=== PATIENT | female | born 1965 | race Caucasian/White ===

== ENCOUNTER 2018-08-30 15:08 | Inpatient (IN) | payer OTHER ==
[2018-08-30 17:14] VITALS: BMI 20.5
--- NOTE | 2018-08-30 17:56 | HP ---
CIWA Score - Admission Criteria OASAS Guidelines: Admission for Medically Managed Detox: Requires at least one of the followin. CIWA greater than 12 2. Seizures within the past 24 hours 3. Delirium tremens within the past 24 hours 4. Hallucinations within the past 24 hours 5. Acute intervention needed for co occurring medical disorder 6. Acute intervention needed for co occurring psychiatric disorder 7. Severe withdrawal that cannot be handled at a lower level of care (continued vomiting, continued diarrhea, abnormal vital signs) requiring intravenous medication and/or fluids 8. Admission ROS S - HPI Chief Complaint: SEEKING REHAB SERVICES Allergies/Adverse Reactions: Allergies Allergy/AdvReac Type Severity Reaction Status Date / Time No Known Allergies Allergy Verified 08/30/18 17:06 History of Present Illness: 53 Y.O. WOMAN WITH AN EXTENSIVE HISTORY OF CRACK-COCAINE, MARIJUANA AND K2 DEPENDENCE IS HERE SEEKING REHAB SERVICES. SHE REPORTS SHE LAST COMPLETED REHAB AT [facility] 6 MONTHS AGO. SHE REPORTS HER LONGEST PERIOD OF ILLICIT DRUG ABSTINENCES HAS BEEN 3 YEARS. Exam Limitations: No Limitations - Ebola screening Have you traveled outside of the country in the last 21 days: No Have you had contact with anyone from an Ebola affected area: No Do you have a fever: No - Review of Systems Constitutional: Chills EENT: reports: Nose Congestion Respiratory: reports: Cough Cardiac: reports: No Symptoms Reported GI: reports: No Symptoms Reported : reports: Dysuria Musculoskeletal: reports: No Symptoms Reported Integumentary: reports: No Symptoms Reported Neuro: reports: No Symptoms reported Endocrine: reports: No Symptoms Reported Hematology: reports: No Symptoms Reported Psychiatric: reports: Judgement Intact, Mood/Affect Appropiate, Orientated x3 Other Systems: Reviewed and Negative Patient History - Patient Medical History Hx Anemia: No Hx Asthma: No Hx Chronic Obstructive Pulmonary Disease (COPD): No Hx Cancer: No Hx Cardiac Disorders: No Hx Congestive Heart Failure: No Hx Hypertension: No Hx Hypercholesterolemia: No Hx Pacemaker: No HX Cerebrovascular Accident: No Hx Seizures: No Hx Dementia: No Hx Diabetes: No Hx Gastrointestinal Disorders: No Hx Liver Disease: No Hx Genitourinary Disorders: No Hx Sexually Transmitted Disorders: No Hx Renal Disease (ESRD): No Hx Thyroid Disease: Yes (HYPOTHYROID ) Hx Human Immunodeficiency Virus (HIV): No Hx Hepatitis C: No Hx Depression: No Hx Suicide Attempt: No Hx Bipolar Disorder: Yes Hx Schizophrenia: No Other Medical History: INSOMNIA - Patient Surgical History Past Surgical History: Yes Hx Orthopedic Surgery: Yes (HEAL SPUR AT 18 Y.O. ) Anesthesia Reaction: No - PPD History Previous Implant?: Yes Documented Results: Negative w/o proof PPD to be Administered?: Yes - Reproductive History Patient is a Female of Child Bearing Age (11 -55 yrs old): Yes Last Menstrual Period: 08/30/14 Patient : No - Smoking Cessation Smoking history: Current every day smoker Have you smoked in the past 12 months: Yes Aproximately how many cigarettes per day: 10 Initiated information on smoking cessation: Yes 'Breaking Loose' booklet given: 08/30/18 - Substance & Tx. History Hx Alcohol Use: No Hx Substance Use: Yes Substance Use Type: Cocaine, Marijuana Hx Substance Use Treatment: Yes (REHAB: 6 MONTHS AT [facility] ) - Substances abused Crack Substance route: Smoking Frequency: 3-6 times per week Amount used: $50 Age of first use: 21 Date of last use: 08/28/18 Marijuana/Hashish Substance route: Smoking Frequency: 3-6 times per week Amount used: $30 Age of first use: 21 Date of last use: 08/30/18 Family Disease History - Family Disease History Family Disease History: Other: Mother (Heroin dependence- ) Admission Physical Exam [facility] - Vital Signs Vital Signs: Vital Signs - 24 hr 08/30/18 16:55 Temperature 97.3 F L Pulse Rate 71 Respiratory 16 Rate Blood Pressure 122/82 - Physical General Appearance: Yes: No Apparent Distress, Nourished, Appropriately Dressed HEENTM: Yes: Other (Hard of hearing of) Respiratory: Yes: Chest Non-Tender, Lungs Clear, Normal Breath Sounds, No Respiratory Distress, No Accessory Muscle Use Neck: Yes: Within Normal Limits, No masses,lesions,Nodules Breast: Yes: Within Normal Limits Cardiology: Yes: Regular Rhythm, Regular Rate Abdominal: Yes: Normal Bowel Sounds, Non Tender Genitourinary: Yes: Dysuria Back: Yes: Within Normal Limits, Normal Inspection Musculoskeletal: Yes: full range of Motion, Gait Steady, Pelvis Stable Extremities: Yes: Normal Inspection, Normal Range of Motion, Non-Tender Neurological: Yes: Alert, Normal Mood/Affect, Normal Response Integumentary: Yes: Normal Color, Dry, Warm Lymphatic: Yes: Within Normal Limits - Diagnostic (1) Cocaine dependence, uncomplicated Current Visit: Yes Status: Chronic (2) Cannabis dependence, uncomplicated Current Visit: Yes Status: Chronic (3) Hypothyroid Current Visit: Yes Status: Chronic (4) Nicotine dependence Current Visit: Yes Status: Chronic Cleared for Admission S - Detox or Rehab [facility] Level of Care: Observation Bed Detox Regimen/Protocol: Not Applicable Claeared for Rehab Admission: Yes Breathalyzer - Breathalyzer Breathalyzer: 0 Inpatient Rehab Admission - Rehab Decision to Admit Inpatient rehab admission?: Yes - Initial Determination Are CD services needed?: Yes Free of communicable disease: Yes Not in need of hospitalization: Yes - Rehab Admission Criteria Previous failed treatment: Yes Poor recovery environment: Yes Comorbidities: Yes Lacks judgement: Yes Patient is meeting Inpatient Rehab admission criteria:: Yes
[2018-08-30] MEDS ORDERED: P-EPHED 60MG/TRIPROLIDI 2.5MG TABLET PO PRN (18:06)
[2018-08-30] MEDS ORDERED: MAG HYDROX/AL HYDROX/SIMETH 30 ML UNIT-DOSE CUP PO PRN (18:06)
[2018-08-30] MEDS ORDERED: LOPERAMIDE HCL 2 MG CAPSULE PO PRN (18:06)
[2018-08-30] MEDS ORDERED: IBUPROFEN 400 MG TABLET (FP) PO PRN (18:06)
[2018-08-30] MEDS ORDERED: MAGNESIUM HYDROX 2400MG/30ML ORAL SUSPENSION 30 ML CUP PO PRN (18:06)
[2018-08-30] MEDS ORDERED: ACETAMINOPHEN 325 MG TABLET (FP) PO PRN (18:06)
[2018-08-30] MEDS ORDERED: MENTHOL/PHENOL 1 EACH UD MM PRN (18:06)
[2018-08-30] MEDS ORDERED: MAGNESIUM CITRATE 300 ML BOTTLE PO PRN (18:06)
[2018-08-30] MEDS ORDERED: NICOTINE POLACRILEX 2 MG GUM BC PRN (18:06)
[2018-08-30] MEDS ORDERED: TUBERCULIN PPD 5 TU/0.1ML VIAL ID ONE (21:11)
[2018-08-30] MEDS ORDERED: traZODone HCL 50 MG TABLET (FP) PO ONE (22:00)
[2018-08-30] MEDS: THIAMINE HCL 100 MG TABLET (FP) PO SCH (23:20)
[2018-08-31 00:59] LABS: EPI CELLS >36 /HPF (0-5/HPF); HYALINE CASTS 58 /lpf (0-8); PH,URINE 5.5 (5.0-8.0); URINE APPEARANCE TURBID; URINE BACTERIA 1341.5 /hpf (NEGATIVE); URINE BILIRUBIN 1+ (NEGATIVE); URINE COLOR DK YELLOW; URINE GLUCOSE (UA) NEGATIVE (NEGATIVE); URINE KETONE TRACE (NEGATIVE); URINE LEUK ESTERASE 3+ (NEGATIVE); URINE NITRITE NEGATIVE (NEGATIVE); URINE PROTEIN TRACE (NEGATIVE); URINE UROBILINOGEN 0.2 mg/dL (0.2-1.0); URINE WBC 837 /hpf (0-5)
[2018-08-31 01:30] LABS: URINE RBC 15-20 /hpf (0-4)
[2018-08-31 01:31] LABS: URINE CRYSTALS MODERATE /hpf
[2018-08-31 01:32] LABS: YEAST NEGATIVE (NEGATIVE)
[2018-08-31] MEDS ORDERED: LORATADINE 10 MG PO SCH (10:00)
[2018-08-31] MEDS: PRENATAL VITAMINS W/ FOLIC ACID TABLET (FP) PO SCH (10:06)
[2018-08-31] MEDS: LEVOTHYROXINE NA 25 MCG TABLET (FP) PO SCH (10:06)
[2018-08-31] MEDS: NICOTINE 14 MG/24 HOURS TOPICAL PATCH TD SCH (10:06)
[2018-08-31] MEDS: guaiFENesin 200 MG/10 ML 10 ML UNIT-DOSE CUPS PO PRN (10:18)
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
--- NOTE | 2018-08-31 12:14 | EKG ---
Test Reason : Blood Pressure : / mmHG Vent. Rate : 061 BPM Atrial Rate : 061 BPM P-R Int : 120 ms QRS Dur : 076 ms QT Int : 452 ms P-R-T Axes : 062 066 068 degrees QTc Int : 455 ms NORMAL SINUS RHYTHM NORMAL ECG NO PREVIOUS ECGS AVAILABLE Confirmed by MD Brandon, Jaime ([id number]) on 08/31/2018 12:14:20 PM Referred By: Confirmed By:Jaime Taylor MD
[2018-08-31 12:30] LABS: HEMATOCRIT 38.1 % (32.4-45.2); HEMOGLOBIN 11.9 GM/dL (10.7-15.3); MCH 25.8 pg (25.7-33.7); MCHC 31.2 g/dl (32.0-36.0); MEAN CELL VOLUME 82.9 fl (80-96); MEAN PLT VOLUME 8.8 fl (7.5-11.1); PLATELET COUNT 310 K/MM3 (134-434); RDW 18.2 % (11.6-15.6); WHITE BLOOD COUNT 8.9 K/mm3 (4.0-10.0)
[2018-08-31 12:40] LABS: ALBUMIN 3.4 g/dl (3.4-5.0); BILIRUBIN,TOTAL 0.4 mg/dL (0.2-1); CALCIUM 8.9 mg/dL (8.5-10.1); CREATININE 0.8 mg/dL (0.55-1.3); POTASSIUM 4.9 mmol/L (3.5-5.1); TOT PROT 6.4 g/dl (6.4-8.2)
[2018-08-31] MEDS: ARIPiprazole 10 MG TABLET PO SCH (12:40)
[2018-08-31] MEDS: traZODone HCL 100 MG TABLET (FP) PO SCH (21:33)
[2018-08-31] MEDS: THIAMINE HCL 100 MG TABLET (FP) PO SCH (21:34)
[2018-08-31] MEDS ORDERED: PT OWN MED DRAWER 7, Y5N ONE (23:43)
[2018-09-01] MEDS: NICOTINE 14 MG/24 HOURS TOPICAL PATCH TD SCH (10:24)
[2018-09-01] MEDS: ARIPiprazole 10 MG TABLET PO SCH (10:24)
[2018-09-01] MEDS: LORATADINE 10 MG TABLET PO SCH (10:24)
[2018-09-01] MEDS: PRENATAL VITAMINS W/ FOLIC ACID TABLET (FP) PO SCH (10:24)
[2018-09-01] MEDS: LEVOTHYROXINE NA 25 MCG TABLET (FP) PO SCH (10:26)
[2018-09-01] MEDS: guaiFENesin 200 MG/10 ML 10 ML UNIT-DOSE CUPS PO PRN (20:16)
[2018-09-01] MEDS: THIAMINE HCL 100 MG TABLET (FP) PO SCH (21:57)
[2018-09-01] MEDS: traZODone HCL 100 MG TABLET (FP) PO SCH (21:57)
[2018-09-01] MEDS: valACYclovir HCL 500 MG TABLET (FP) PO SCH (21:57)
[2018-09-02] MEDS: LEVOTHYROXINE NA 25 MCG TABLET (FP) PO SCH (06:31)
[2018-09-02] MEDS: ARIPiprazole 10 MG TABLET PO SCH (10:06)
[2018-09-02] MEDS: LORATADINE 10 MG TABLET PO SCH (10:07)
[2018-09-02] MEDS: NICOTINE 14 MG/24 HOURS TOPICAL PATCH TD SCH (10:07)
[2018-09-02] MEDS: valACYclovir HCL 500 MG TABLET (FP) PO SCH ×2 (10:07→21:25)
[2018-09-02] MEDS: PRENATAL VITAMINS W/ FOLIC ACID TABLET (FP) PO SCH (10:07)
--- NOTE | 2018-09-02 15:48 | PN ---
[facility] Progress Note Note: Client has runny nose and cough. She states she has had a runny nose for many years and a smoker's cough. Her roommate is concerned that the patient may have an URI. Exam: no fever, exudate, malaise,throat redness, headache. Lungs clear. Assessment: Negative for URI. PLAN: Continue claritin and using nicoderm patch.
[2018-09-02] MEDS: traZODone HCL 100 MG TABLET (FP) PO SCH (21:25)
[2018-09-02] MEDS: THIAMINE HCL 100 MG TABLET (FP) PO SCH (21:25)
[2018-09-03] MEDS: LEVOTHYROXINE NA 25 MCG TABLET (FP) PO SCH (06:27)
[2018-09-03] MEDS: NICOTINE 14 MG/24 HOURS TOPICAL PATCH TD SCH (10:03)
[2018-09-03] MEDS: PRENATAL VITAMINS W/ FOLIC ACID TABLET (FP) PO SCH (10:03)
[2018-09-03] MEDS: LORATADINE 10 MG TABLET PO SCH (10:04)
[2018-09-03] MEDS: ARIPiprazole 10 MG TABLET PO SCH (10:04)
[2018-09-03] MEDS: valACYclovir HCL 500 MG TABLET (FP) PO SCH ×2 (10:04→21:29)
[2018-09-03] MEDS: traZODone HCL 100 MG TABLET (FP) PO SCH (21:29)
[2018-09-03] MEDS: guaiFENesin 200 MG/10 ML 10 ML UNIT-DOSE CUPS PO PRN (21:29)
[2018-09-03] MEDS: THIAMINE HCL 100 MG TABLET (FP) PO SCH (21:29)
[2018-09-04] MEDS: hydrOXYzine PAMOATE 50 MG CAPSULE (FP) PO PRN ×2 (00:58→21:27)
[2018-09-04] MEDS: LEVOTHYROXINE NA 25 MCG TABLET (FP) PO SCH (06:55)
[2018-09-04] MEDS: NICOTINE 14 MG/24 HOURS TOPICAL PATCH TD SCH (09:50)
[2018-09-04] MEDS: LORATADINE 10 MG TABLET PO SCH (09:51)
[2018-09-04] MEDS: ARIPiprazole 10 MG TABLET PO SCH (09:51)
[2018-09-04] MEDS: valACYclovir HCL 500 MG TABLET (FP) PO SCH ×2 (09:51→21:26)
[2018-09-04] MEDS: PRENATAL VITAMINS W/ FOLIC ACID TABLET (FP) PO SCH (09:51)
[2018-09-04] MEDS: THIAMINE HCL 100 MG TABLET (FP) PO SCH (21:26)
[2018-09-04] MEDS: traZODone HCL 100 MG TABLET (FP) PO SCH (21:26)
[2018-09-04] MEDS: MELATONIN 5 MG TABLETS PO PRN (21:27)
[2018-09-04] MEDS: guaiFENesin 200 MG/10 ML 10 ML UNIT-DOSE CUPS PO PRN (21:27)
[2018-09-05] MEDS: LEVOTHYROXINE NA 25 MCG TABLET (FP) PO SCH (06:37)
[2018-09-05] MEDS: valACYclovir HCL 500 MG TABLET (FP) PO SCH ×2 (10:04→21:21)
[2018-09-05] MEDS: LORATADINE 10 MG TABLET PO SCH (10:04)
[2018-09-05] MEDS: ARIPiprazole 10 MG TABLET PO SCH (10:04)
[2018-09-05] MEDS: NICOTINE 14 MG/24 HOURS TOPICAL PATCH TD SCH (10:04)
[2018-09-05] MEDS: PRENATAL VITAMINS W/ FOLIC ACID TABLET (FP) PO SCH (10:04)
--- NOTE | 2018-09-05 12:09 | PN ---
S Progress Note Note: Vital Signs Temperature 97.3 F L 09/05/18 07:06 Pulse Rate 62 09/05/18 07:06 Respiratory Rate 16 09/05/18 07:06 Blood Pressure 124/89 09/05/18 07:06 O2 Sat by Pulse Oximetry (%) c/o of pain with urination UC/ UA ordered increase fluids continue to monitor
[2018-09-05 17:28] LABS: PH,URINE 5.5 (5.0-8.0); URINE APPEARANCE CLEAR; URINE BILIRUBIN NEGATIVE (NEGATIVE); URINE COLOR YELLOW; URINE GLUCOSE (UA) NEGATIVE (NEGATIVE); URINE KETONE NEGATIVE (NEGATIVE); URINE LEUK ESTERASE NEGATIVE (NEGATIVE); URINE NITRITE NEGATIVE (NEGATIVE); URINE PROTEIN NEGATIVE (NEGATIVE); URINE UROBILINOGEN 0.2 mg/dL (0.2-1.0)
[2018-09-05] MEDS: THIAMINE HCL 100 MG TABLET (FP) PO SCH (21:21)
[2018-09-05] MEDS: traZODone HCL 100 MG TABLET (FP) PO SCH (21:21)
[2018-09-05] MEDS: hydrOXYzine PAMOATE 50 MG CAPSULE (FP) PO PRN (21:22)
[2018-09-05] MEDS: MELATONIN 5 MG TABLETS PO PRN (21:22)
[2018-09-05] MEDS: guaiFENesin 200 MG/10 ML 10 ML UNIT-DOSE CUPS PO PRN (21:22)
[2018-09-06] MEDS: LEVOTHYROXINE NA 25 MCG TABLET (FP) PO SCH (07:31)
[2018-09-06] MEDS: valACYclovir HCL 500 MG TABLET (FP) PO SCH ×2 (10:10→21:16)
[2018-09-06] MEDS: NICOTINE 14 MG/24 HOURS TOPICAL PATCH TD SCH (10:10)
[2018-09-06] MEDS: LORATADINE 10 MG TABLET PO SCH (10:10)
[2018-09-06] MEDS: ARIPiprazole 10 MG TABLET PO SCH (10:10)
[2018-09-06] MEDS: PRENATAL VITAMINS W/ FOLIC ACID TABLET (FP) PO SCH (10:10)
[2018-09-06] MEDS: NICOTINE 21 MG/24 HOURS TOPICAL PATCH TD SCH (12:50)
[2018-09-06] MEDS: THIAMINE HCL 100 MG TABLET (FP) PO SCH (21:16)
[2018-09-06] MEDS: MELATONIN 5 MG TABLETS PO PRN (21:16)
[2018-09-06] MEDS: guaiFENesin 200 MG/10 ML 10 ML UNIT-DOSE CUPS PO PRN (21:16)
[2018-09-06] MEDS: hydrOXYzine PAMOATE 50 MG CAPSULE (FP) PO PRN (21:16)
[2018-09-06] MEDS: traZODone HCL 100 MG TABLET (FP) PO SCH (21:16)
[2018-09-06] MEDS ORDERED: PT OWN MED DRAWER 7, Y5N ONE (21:44)
[2018-09-07] MEDS: LEVOTHYROXINE NA 25 MCG TABLET (FP) PO SCH (06:34)
[2018-09-07] MEDS: ARIPiprazole 10 MG TABLET PO SCH (09:58)
[2018-09-07] MEDS: LORATADINE 10 MG TABLET PO SCH (09:59)
[2018-09-07] MEDS: PRENATAL VITAMINS W/ FOLIC ACID TABLET (FP) PO SCH (09:59)
[2018-09-07] MEDS: valACYclovir HCL 500 MG TABLET (FP) PO SCH ×2 (09:59→21:27)
[2018-09-07] MEDS: NICOTINE 21 MG/24 HOURS TOPICAL PATCH TD SCH (09:59)
[2018-09-07] MEDS ORDERED: PT OWN MED DRAWER 7, Y5N ONE (12:13)
[2018-09-07] MEDS: traZODone HCL 100 MG TABLET (FP) PO SCH (21:27)
[2018-09-07] MEDS: hydrOXYzine PAMOATE 50 MG CAPSULE (FP) PO PRN (21:27)
[2018-09-07] MEDS: MELATONIN 5 MG TABLETS PO PRN (21:27)
[2018-09-07] MEDS: THIAMINE HCL 100 MG TABLET (FP) PO SCH (21:27)
[2018-09-07] MEDS: guaiFENesin 200 MG/10 ML 10 ML UNIT-DOSE CUPS PO PRN (21:28)
[2018-09-08] MEDS: LEVOTHYROXINE NA 25 MCG TABLET (FP) PO SCH (07:07)
[2018-09-08] MEDS ORDERED: PT OWN MED DRAWER 7, Y5N ONE (08:54)
[2018-09-08] MEDS: NICOTINE 21 MG/24 HOURS TOPICAL PATCH TD SCH (10:07)
[2018-09-08] MEDS: valACYclovir HCL 500 MG TABLET (FP) PO SCH ×2 (10:08→21:31)
[2018-09-08] MEDS: PRENATAL VITAMINS W/ FOLIC ACID TABLET (FP) PO SCH (10:08)
[2018-09-08] MEDS: LORATADINE 10 MG TABLET PO SCH (10:08)
[2018-09-08] MEDS: ARIPiprazole 10 MG TABLET PO SCH (10:08)
[2018-09-08] MEDS: THIAMINE HCL 100 MG TABLET (FP) PO SCH (21:31)
[2018-09-08] MEDS: hydrOXYzine PAMOATE 50 MG CAPSULE (FP) PO PRN (21:31)
[2018-09-08] MEDS: traZODone HCL 100 MG TABLET (FP) PO SCH (21:31)
[2018-09-08] MEDS: guaiFENesin 200 MG/10 ML 10 ML UNIT-DOSE CUPS PO PRN (21:32)
[2018-09-09] MEDS: LEVOTHYROXINE NA 25 MCG TABLET (FP) PO SCH (06:41)
[2018-09-09] MEDS: PRENATAL VITAMINS W/ FOLIC ACID TABLET (FP) PO SCH (10:03)
[2018-09-09] MEDS: NICOTINE 21 MG/24 HOURS TOPICAL PATCH TD SCH (10:03)
[2018-09-09] MEDS: ARIPiprazole 10 MG TABLET PO SCH (10:03)
[2018-09-09] MEDS: LORATADINE 10 MG TABLET PO SCH (10:03)
[2018-09-09] MEDS: valACYclovir HCL 500 MG TABLET (FP) PO SCH ×2 (10:03→21:14)
[2018-09-09] MEDS: THIAMINE HCL 100 MG TABLET (FP) PO SCH (21:14)
[2018-09-09] MEDS: traZODone HCL 100 MG TABLET (FP) PO SCH (21:14)
[2018-09-09] MEDS: hydrOXYzine PAMOATE 50 MG CAPSULE (FP) PO PRN (21:15)
[2018-09-09] MEDS: guaiFENesin 200 MG/10 ML 10 ML UNIT-DOSE CUPS PO PRN (21:15)
[2018-09-10] MEDS: LEVOTHYROXINE NA 25 MCG TABLET (FP) PO SCH (06:38)
[2018-09-10 07:10] VITALS: BP 116/78; PULSE 97; TEMP 97.7
--- NOTE | 2018-09-10 08:36 | PN ---
[facility] Progress Note (SOAP) Subjective: PT COMPLETED REHAB AND DISCHARGED TODAY. Objective: 09/10/18 08:34 Vital Signs 09/10/18 07:10 Temperature 97.7 F Pulse Rate 97 H Respiratory 16 Rate Blood Pressure 116/78 Laboratory Tests 08/30/18 08/30/18 08/31/18 23:53 23:54 08:00 WBC 8.9 RBC 4.60 Hgb 11.9 Hct 38.1 MCV 82.9 MCH 25.8 MCHC 31.2 L RDW 18.2 H Plt Count 310 MPV 8.8 Sodium Potassium Chloride Carbon Dioxide Anion Gap BUN Creatinine Est GFR (CKD-EPI)AfAm Est GFR (CKD-EPI)NonAf Random Glucose Calcium Total Bilirubin AST ALT Alkaline Phosphatase Total Protein Albumin Urine Color Dk yellow Urine Appearance Turbid Urine pH 5.5 Ur Specific [place] 1.025 Urine Protein Trace Urine Glucose (UA) Negative Urine Ketones Trace H Urine Blood Trace Urine Nitrite Negative Urine Bilirubin 1+ H Urine Urobilinogen 0.2 Ur Leukocyte Esterase 3+ H Urine WBC (Auto) 837 Urine RBC (Auto) 15-20 Urine Casts (Auto) 58 U Pathogenic Cast Auto 0 U Epithel Cells (Auto) >36 Urine Crystals (Auto) Moderate Urine Bacteria (Auto) 1341.5 Urine Yeast (Auto) Negative POC Urine HCG, Qual Negative RPR Titer 08/31/18 08/31/18 09/05/18 08:00 08:00 13:56 WBC RBC Hgb Hct MCV MCH MCHC RDW Plt Count MPV Sodium 141 Potassium 4.9 Chloride 107 Carbon Dioxide 30 Anion Gap 4 L BUN 12 Creatinine 0.8 Est GFR (CKD-EPI)AfAm 97.55 Est GFR (CKD-EPI)NonAf 84.17 Random Glucose 107 H Calcium 8.9 Total Bilirubin 0.4 AST 17 ALT 17 Alkaline Phosphatase 95 Total Protein 6.4 Albumin 3.4 Urine Color Yellow Urine Appearance Clear Urine pH 5.5 Ur Specific [place] 1.010 Urine Protein Negative Urine Glucose (UA) Negative Urine Ketones Negative Urine Blood Negative Urine Nitrite Negative Urine Bilirubin Negative Urine Urobilinogen 0.2 Ur Leukocyte Esterase Negative Urine WBC (Auto) Urine RBC (Auto) Urine Casts (Auto) U Pathogenic Cast Auto U Epithel Cells (Auto) Urine Crystals (Auto) Urine Bacteria (Auto) Urine Yeast (Auto) POC Urine HCG, Qual RPR Titer Nonreactive Assessment: 09/10/18 08:35 NAD MEDICALLY STABLE FOR DISCHARGE TODAY Plan: FOLLOW UP WITH CD AFTERCARE RECOMMENDED.
--- NOTE | 2018-09-10 08:50 | PN ---
S Progress Note Note: Psychiatric nurse practitioner note: Patient scheduled for discharged this morning. A 30 day prescription of Abilify 20mg + Trazodone 100mg was electronically sent to [facility] pharmacy, [address] [place] [address].
[2018-09-10] MEDS: ARIPiprazole 10 MG TABLET PO SCH (09:14)
[2018-09-10] MEDS: PRENATAL VITAMINS W/ FOLIC ACID TABLET (FP) PO SCH (09:15)
[2018-09-10] MEDS: valACYclovir HCL 500 MG TABLET (FP) PO SCH (09:15)
[2018-09-10] MEDS: NICOTINE 21 MG/24 HOURS TOPICAL PATCH TD SCH (09:15)
[2018-09-10] MEDS: LORATADINE 10 MG TABLET PO SCH (09:15)
== END 2018-09-10 09:38 | disposition home or self-care (01) | DRG 772 ==
LOC: YASAS 15:08 → Y3E 18:13
PROVIDERS: ADMIT Neuromusculoskeletal Medicine & OMM; ATTEND Neuromusculoskeletal Medicine & OMM
PROC: HZ42ZZZ Group Counseling for Substance Abuse Treatment, Cognitive-Behavioral (ICD-10-PCS; principal; 2018-08-30)
DX: F14.20 Cocaine dependence, uncomplicated (principal); F12.20 Cannabis dependence, uncomplicated; F17.210 Nicotine dependence, cigarettes, uncomplicated; F19.282 Other psychoactive substance dependence with psychoactive substance-induced sleep disorder; F31.81 Bipolar II disorder; F90.9 Attention-deficit hyperactivity disorder, unspecified type; E03.9 Hypothyroidism, unspecified
CPT/HCPCS: 36415; 80053; 81003; 81025; 85027; 86593; 87086; 93005; 93010